=== PATIENT | male | born 1955 | race Caucasian/White ===

== ENCOUNTER → 2017-11-14 | Day surgery (SDC) | payer OTHER ==
[~2017-11-14] MED LIST: ALTACE1.25 MG PO; CELEBREX100 MG PO; PERCOCET 5/3251 TAB PO; SKELAXIN800 MG PO
== END | disposition home or self-care (01) ==
LOC: ADM 11-08 13:00 → AMB-ENDOS 06:26 → ADM 13:00 → AMB-ENDOS 13:00
DX: D12.8 Benign neoplasm of rectum (principal)

== ENCOUNTER 2018-07-17 07:12 | Day surgery (SDC) | payer OTHER | END 2018-07-17 11:55 | disposition home or self-care (01) | LOC: AMB-ENDOS 07:12 | DX: K64.4 Residual hemorrhoidal skin tags (principal) ==

== ENCOUNTER 2019-07-16 11:30 | Day surgery (SDC) | payer OTHER | END 2019-07-16 14:40 | disposition home or self-care (01) | LOC: AMB-ENDOS 11:30 → ADM 13:45 → AMB-ENDOS 14:40 | DX: K62.89 Other specified diseases of anus and rectum (principal); Z08 Encounter for follow-up examination after completed treatment for malignant neoplasm; Z85.038 Personal history of other malignant neoplasm of large intestine ==

== ENCOUNTER 2021-07-13 06:49 | Day surgery (SDC) | payer OTHER | END 2021-07-13 11:20 | disposition home or self-care (01) | LOC: AMB-ENDOS 06:49 | PROVIDERS: ATTEND Surgery | DX: K62.1 Rectal polyp (principal); Z20.822 Contact with and (suspected) exposure to COVID-19 ==